=== PATIENT | female | born 1955 | race Caucasian/White ===

== ENCOUNTER → 2016-06-02 | Outpatient (CLI) | payer OTHER ==
[~2016-06-02] MED LIST: NO MEDICATIONS
--- NOTE | ~2016-06-02 | MY11 ---
[facility] A Service of [facility] RADIOLOGY TEXT RESULTS PATIENT: ROXIE HARTMANN LOCATION: [facility] : 51 UNIT #: [id number] AGE: [address]: Alexy Machado MD SEX: F ORDER DR: [id number] [address] [id number] O MR#: [id number] Acc #: [id number] NAME: ROXIE HARTMANN : 1955 SEX: F STUDY DATE/TIME: 06/02/2016 9:14 UNIT: [facility] ROOM: STUDY DESCRIPTION: MY Mammogram Screening Dig Richard Attending Physician: Alexy Machado M.D. Referring Physician: Alexy Machado M.D. Ordering Physician: Alexy Machado M.D. Primary Care Physician: Alexy Machado M.D. MEDICAL IMAGING REPORT This report is preliminary unless electronic signature is present. EXAM Bilateral digital screening mammogram with CAD 06/02/2016 INDICATIONS 60-year-old female for routine screening. No reported problems and no personal or family history of breast cancer. No surgeries. TECHNIQUE CC and MLO views of the breast were obtained and reviewed with an FDA approved CAD device. The patient reports prior mammograms at [facility], but no comparison studies have been located. This will serve as her new baseline study. FINDINGS Breast parenchyma is composed of scattered fibroglandular densities and the pattern is symmetric. There is no dominant nodule, mass or suspicious cluster of microcalcifications. In the right breast upper hemisphere middle third depth there is a 6 mm nodular asymmetry likely representing a tiny cyst or intramammary node. It most likely localizes laterally on the CC projection. Suggest spot compression views and a true lateral view for further assessment. If this persists on additional imaging ultrasound would be recommended for further assessment. There are benign calcifications bilaterally. IMPRESSION 6 mm nodular asymmetry in the upper outer right breast. Additional views and potentially breast ultrasound recommended for further assessment given lack of prior studies for comparison. Patients over the age of 40 are entered into a reminder system with target due date for the next mammogram. A result letter will also be sent to the patient. BIRADS: 0 Incomplete; Need additional imaging evaluation and/or prior STS. [facility] A Service of [facility] RADIOLOGY TEXT RESULTS PATIENT: ROXIE HARTMANN LOCATION: [facility] : 51 UNIT #: [id number] AGE: [address]: Alexy Machado MD SEX: F ORDER DR: mammograms for comparison. Dictated by... Dread Mccoy M.D. THIS IS AN ELECTRONICALLY VERIFIED REPORT Dread Mccoy M.D. at 06/02/2016 3:39 PM Lizabeth TD: 06/02/2016 12:27 JOB #: [id number] MEDICAL IMAGING REPORT
== END | disposition home or self-care (01) ==
LOC: SMAM 08:35
DX: Z12.31 Encounter for screening mammogram for malignant neoplasm of breast (principal); N64.89 Other specified disorders of breast
CPT/HCPCS: G0202